=== PATIENT | male | born 1990 | race Caucasian/White ===

== ENCOUNTER 2017-03-28 11:12 | Emergency (ER) | payer SELFPAY ==
[2017-03-28 12:02] LABS: HEMATOCRIT 47.6 % (37.9-51.0); HEMOGLOBIN 16.5 g/dL (13.5-17.0); HGB HCT DIFFERENCE 1.9; MEAN CORPUSCULAR HEMOGLOBIN 31.9 pg (27.0-33.4); MEAN CORPUSCULAR HGB CONC 34.7 g/dL (32.0-36.0); MEAN CORPUSCULAR VOLUME 92 fl (80-97); RED BLOOD COUNT 5.18 10^6/uL (4.35-5.55); RED CELL DISTRIBUTION WIDTH 13.1 % (11.5-14.0); WHITE BLOOD COUNT 22.5 10^3/uL (4.0-10.5)
[2017-03-28 12:16] LABS: ALANINE AMINOTRANSFERASE 44 U/L (21-72); ALBUMIN 4.2 g/dL (3.5-5.0); ALKALINE PHOSPHATASE 54 U/L (38-126); ANION GAP 11 (5-19); ASPARTATE AMINO TRANSFERASE 35 U/L (17-59); BILIRUBIN,DIRECT 0.3 mg/dL (0.0-0.4); BILIRUBIN,TOTAL 1.1 mg/dL (0.2-1.3); BLOOD UREA NITROGEN 15 mg/dL (7-20); CALCIUM 9.6 mg/dL (8.4-10.2); CARBON DIOXIDE 30 mmol/L (22-30); CHLORIDE 101 mmol/L (98-107); CREATININE RESULT 1.22 mg/dL (0.52-1.25); GLUCOSE 79 mg/dL (75-110); POTASSIUM 4.1 mmol/L (3.6-5.0); SODIUM 142.3 mmol/L (137-145); TOTAL PROTEIN 6.4 g/dL (6.3-8.2)
[2017-03-28 12:17] LABS: ALCOHOL < 10 mg/dL (NONE DETECTED)
--- NOTE | 2017-03-28 12:41 | ER Document Report ---
ED General - General Chief Complaint: Suicidal Ideation Stated Complaint: SUICIDAL IDEATIONS Time Seen by Provider: 03/28/17 11:36 TRAVEL OUTSIDE OF THE [place] IN LAST 30 DAYS: No - HPI Patient complains to provider of: suicidal ideation overdose Notes: Patient coming in for overdose of medication. Patient took approximate 5 flexors and states 40 triple see tablets at 2:00 night prior to arrival in the attempt to kill himself. Patient states history of suicide and suicide attempts in the past. Patient denies any PTSD bipolar does state he has a history of depression. Patient states he is provider is located at [facility] and is not on any medications at this time. Patient denies smoking states he was drinking last night denies any other illicit drugs suffer marijuana. Patient denies any change in social or vomiting factors that made him overdose last night states "I was just trying to kill myself". - Related Data Allergies/Adverse Reactions: No Known Allergies Allergy (Verified 11/02/16 07:52) Past Medical History - Social History Smoking Status: Current Every Day Smoker Chew tobacco use (# tins/day): No Frequency of alcohol use: Heavy Drug Abuse: Prescription drugs Family History: Reviewed & Not Pertinent Psychiatric Medical History: Reports: Hx Depression - Immunizations Hx Diphtheria, Pertussis, Tetanus Vaccination: Yes Review of Systems - Review of Systems Constitutional: No symptoms reported EENT: No symptoms reported Cardiovascular: No symptoms reported Respiratory: No symptoms reported Gastrointestinal: No symptoms reported Genitourinary: No symptoms reported Male Genitourinary: No symptoms reported Musculoskeletal: No symptoms reported Skin: No symptoms reported Hematologic/Lymphatic: No symptoms reported Neurological/Psychological: Suicidal ideation -: Yes All other systems reviewed and negative Physical Exam - Vital signs Vitals: Temp Pulse Resp BP Pulse Ox 98.9 F 92 20 143/92 H 99 03/28/17 11:20 03/28/17 11:20 03/28/17 11:20 03/28/17 11:20 03/28/17 11:20 Interpretation: Normal - General General appearance: Appears well, Alert - HEENT Head: Normocephalic, Atraumatic Eyes: Normal Pupils: PERRL - Respiratory Respiratory status: No respiratory distress Chest status: Nontender Breath sounds: Normal Chest palpation: Normal - Cardiovascular Rhythm: Regular Heart sounds: Normal auscultation Murmur: No - Abdominal Inspection: Normal Distension: No distension Bowel sounds: Normal Tenderness: Nontender Organomegaly: No organomegaly - Back Back: Normal, Nontender - Extremities General upper extremity: Normal inspection, Nontender, Normal color, Normal ROM , Normal temperature General lower extremity: Normal inspection, Nontender, Normal color, Normal ROM , Normal temperature, Normal weight bearing. No: Rahat's sign - Neurological Neuro grossly intact: Yes Cognition: Normal Orientation: AAOx4 [place] Coma Scale Eye Opening: Spontaneous [place] Coma Scale Verbal: Oriented [place] Coma Scale Motor: Obeys Commands John Coma Scale Total: 15 Speech: Normal Motor strength normal: LUE, RUE, LLE, RLE Sensory: Normal - Psychological Associated symptoms: Flat affect - Skin Skin Temperature: Warm Skin Moisture: Dry Skin Color: Normal Course - Re-evaluation Re-evalutation: 03/28/17 12:20 Patient will be medically cleared for mental health evaluation. At this point patient physical examination is otherwise normal. 03/28/17 18:34 03/28/17 18:34 Leukocytosis nondescriptive no signs of infection recommend monitoring patient becomes febrile repeat laboratory studies. Patient otherwise clear for psychiatric evaluation. - Vital Signs Vital signs: Temp Pulse Resp BP Pulse Ox 98.8 F 92 18 143/92 H 97 03/28/17 11:36 03/28/17 11:36 03/28/17 11:36 03/28/17 11:36 03/28/17 11:36 - Laboratory Result Diagrams: 03/28/17 11:45 03/28/17 11:45 Laboratory results interpreted by me: 03/28/17 03/28/17 03/28/17 11:45 11:45 13:50 WBC 22.5 H Plt Count 147 L Seg Neuts % (Manual) 84 H Band Neutrophils % 1 L Lymphocytes % (Manual) 6 L Abs Neuts (Manual) 19.1 H Urine Protein 30 H Urine Ketones TRACE H Salicylates < 1.0 L Acetaminophen < 10 L Critical Care Note - Critical Care Note Total time excluding time spent on procedures (mins): 35 Comments: Multiple evaluations for possible overdose. Discharge - Discharge Clinical Impression: Drug overdose, intentional Qualifiers: Encounter type: initial encounter Qualified Code(s): T50.902A - Poisoning by unspecified drugs, medicaments and biological substances, intentional self-harm , initial encounter Suicidal behavior Qualifiers: Attempted self-injury: without attempted self-injury Qualified Code(s): R46.89 - Other symptoms and signs involving appearance and behavior
[2017-03-28 13:06] LABS: BAND NEUTROPHILS % (MANUAL) 1 % (3-5); BASOPHILS % (MANUAL) 1 % (0-2); EOSINOPHILS % (MANUAL) 0 % (0-6); LYMPHOCYTES % (MANUAL) 6 % (13-45); RBC MORPHOLOGY COMMENT NORMO-CYTIC/CHROMIC; TOTAL CELLS COUNTED 100
[2017-03-28 14:11] LABS: APPEARANCE,URINE CLEAR; BILIRUBIN,URINE NEGATIVE (NEGATIVE); GLUCOSE, URINE NEGATIVE (NEGATIVE); KETONES,URINE TRACE mg/dL (NEGATIVE); LEUKOCYTE ESTERASE,URINE NEGATIVE (NEGATIVE); NITRITE,URINE NEGATIVE (NEGATIVE); PROTEIN,URINE 30 mg/dL (NEGATIVE); URINE SPECIFIC GRAVITY 1.005; UROBILINOGEN,URINE NEGATIVE mg/dL (<2.0)
[2017-03-28 14:26] LABS: URINE BARBITURATES SCREEN NEGATIVE; URINE METHADONE SCREEN NEGATIVE; URINE OPIATES LOW NEGATIVE; URINE PHENCYCLIDINE SCREEN UNCONFIRMED POSITIVE
--- NOTE | 2017-03-28 15:22 | PSYCHOLOGICAL NOTE ---
Psych Note - Psych Note Psych Note: Patient is a 26 year old male who presented this morning via EMS to 2 intentional overdose of triple C's and Effexor. Patient states he ingested the pills last night. He states since he was seen here last year he's continued to struggle with depression and hopelessness. He states nothing specific happened , but yesterday went into the [place] for the night had a couple of beers, brought a knife (but lost it) and the pills. He states he slowly ingested the pills over the course of the night. Patient reports when he woke up this morning he walked back to his home and his sister encountered him. Patient's sister called EMS for medical evaluation due to concerns over the pills ingested. Patient states since the past year he has continued to live with his mother and is working at [employer]. Patient states he goes to our [facility] for medication management and is prescribed Effexor and also engages in group therapy sessions. Patient states nothing has been helpful and he no longer sees a reason to continue to try. Patient acknowledges that he smokes marijuana and drinks alcohol at least every other day. He reports, as he did last year, that this helps him calm down and sleep. Patient denies any other substances currently, but reports significant history of all drugs to include heroin, etc. Patient is alert and oriented. Mood is depressed with flat affect. Patient endorses suicidal ideations, intent, plan, and means. Patient denies homicidal ideations. Patient endorses a/VH; delusions not noted. Thought processes were organized but guarded. Conversational speech was low for prosody. Intellectual abilities were estimated within the low average range. Attention and focus were fair. Insight, judgment, impulse control were poor. Unspecified bipolar and related disorder, per history Unspecified cannabis use disorder, per history Polysubstance abuse, per history Patient is recommended for IVC and to seek 24 hour inpatient psychiatric treatment. Patient wants to . Patient reprots he is hopeless about his future , and feels he has no future. Patient has attempted suicide in the past. Patient also has SA. I consulted with Dr. shaw in regards to the care and management of this patient ED MD is in agreement with disposition and recommendations.
--- NOTE | 2017-03-28 17:01 | EKG REPORT ---
SEVERITY:- ABNORMAL ECG - SINUS RHYTHM PROBABLE LEFT VENTRICULAR HYPERTROPHY ST ELEV, PROBABLE NORMAL EARLY REPOL PATTERN : Confirmed by: Roger Hurtado 28-Mar-2017 17:00:58
[2017-03-29 13:24] VITALS: BP 131/81
--- NOTE | 2017-03-29 13:53 | PSYCHOLOGICAL NOTE ---
Psych Note - Psych Note Psych Note: Patient is a 26 year old male who presented this morning via EMS secondary to intentional overdose of triple C's and Effexor. Patient states he ingested the pills last night. He states since he was seen here last year he's continued to struggle with depression and hopelessness. He states nothing specific happened , but yesterday went [place] the [place] for the night had a couple of beers, brought a knife (but lost it) and the pills. He states he slowly ingested the pills over the course of the night. Patient reports when he woke up this morning he walked back to his home and his sister encountered him. Patient's sister called EMS for medical evaluation due to concerns over the pills ingested. Patient states since the past year he has continued to live with his mother and is working at [employer]. Patient states he goes to [facility] for medication management and is prescribed Effexor and also engages in group therapy sessions. Clinician conducted check in with patient Patient disclosed he has been dealing with suicidal ideation for years. He states that recently has gotten worse. Patient states that yesterday was bad however feels that it has Dialpak a little bit today. Patient disclosed that he is started Effexor approximately 2-3 months ago. He hasn't outpatient provided through [facility] for his depression his last appointment was 2 weeks ago with increased his Effexor. Patient admits to substance abuse stating that he smokes marijuana every other day. Patient is unable to identify what triggered his increase in suicidal ideation. Patient is alert and orientated to person, place, time and circumstance. Mood is euthymic with congruent affect. Patient denies suicidal and homicidal ideation. Patient denies auditory and visual hallucinations; patient is not demonstrating behaviour what would be congruent to responding to internal stimuli. No delusions are noted. Thought process is organized and linear. Eye contact was well maintained. Intellectual abilities appear to be within average range. Attention and concentration is good. Insight, judgment, and impulse control is good. 311 (F32.9) unspecified depressive disorder per history provided by patient 304.30 (F12.20) cannabis use disorder; moderate Impression\\plan: Patient is recommended for rescind of IVC is considered psychiatrically cleared for discharge. Patient does not meet IVC criteria per [place] GS 122C. Patient disclosed starting medication for depression which correlates his increase in suicidal ideation. Patient has been suffering from suicidal ideation for "years." Patient is recommended to receive substance abuse assessment and treatment. Patient is recommended to follow-up with [facility], his mental health provider, upon discharge. Dr. Hart was consulted to care and management of this patient; attending physician is in agreement with recommendations and disposition.
== END 2017-03-29 14:05 | disposition home or self-care (01) ==
LOC: ER 11:12
DX: T43.212A Poisoning by selective serotonin and norepinephrine reuptake inhibitors, intentional self-harm, initial encounter (principal); T50.902A Poisoning by unspecified drugs, medicaments and biological substances, intentional self-harm, initial encounter; R46.89 Other symptoms and signs involving appearance and behavior; F12.20 Cannabis dependence, uncomplicated; F32.9 Major depressive disorder, single episode, unspecified; F17.200 Nicotine dependence, unspecified, uncomplicated
CPT/HCPCS: 36415; 80053; 80307; 81001; 85025; 93005; 93010; 99291

== ENCOUNTER 2017-04-04 21:11 | Emergency (ER) | payer SELFPAY ==
[2017-04-04] MEDS ORDERED: NORMAL SALINE 1000 ML 1,000 ML IV PRN (22:52)
[2017-04-04 23:24] LABS: ABSOLUTE BASOPHILS # (AUTO) 0.1 10^3/uL (0.0-0.2); ABSOLUTE LYMPHOCYTES (AUTO) 4.1 10^3/uL (0.5-4.7); ABSOLUTE MONOCYTES (AUTO) 1.9 10^3/uL (0.1-1.4); ABSOLUTE NEUT (AUTO) 11.3 10^3/uL (1.7-8.2); BASOPHILS % (AUTO) 0.5 % (0-2); EOSINOPHILS % (AUTO) 0.2 % (0-6); HEMOGLOBIN 15.9 g/dL (13.5-17.0); HGB HCT DIFFERENCE 1.7; LYMPHOCYTES % (AUTO) 23.7 % (13-45); MEAN CORPUSCULAR HEMOGLOBIN 32.2 pg (27.0-33.4); MEAN CORPUSCULAR HGB CONC 34.6 g/dL (32.0-36.0); MEAN CORPUSCULAR VOLUME 93 fl (80-97); MONOCYTES % (AUTO) 10.8 % (3-13); RED BLOOD COUNT 4.95 10^6/uL (4.35-5.55); RED CELL DISTRIBUTION WIDTH 13.2 % (11.5-14.0); SEGMENTED NEUTROPHILS % (AUTO) 64.8 % (42-78); WHITE BLOOD COUNT 17.5 10^3/uL (4.0-10.5)
[2017-04-04 23:31] LABS: APPEARANCE,URINE CLEAR; BILIRUBIN,URINE NEGATIVE (NEGATIVE); GLUCOSE, URINE NEGATIVE (NEGATIVE); KETONES,URINE NEGATIVE (NEGATIVE); LEUKOCYTE ESTERASE,URINE NEGATIVE (NEGATIVE); NITRITE,URINE NEGATIVE (NEGATIVE); PROTEIN,URINE NEGATIVE (NEGATIVE); URINE SPECIFIC GRAVITY 1.003; UROBILINOGEN,URINE NEGATIVE mg/dL (<2.0)
[2017-04-04 23:40] LABS: ALANINE AMINOTRANSFERASE 38 U/L (21-72); ALKALINE PHOSPHATASE 67 U/L (38-126); ANION GAP 12 (5-19); ASPARTATE AMINO TRANSFERASE 23 U/L (17-59); BILIRUBIN,DIRECT 0.5 mg/dL (0.0-0.4); BILIRUBIN,TOTAL 1.4 mg/dL (0.2-1.3); BLOOD UREA NITROGEN 11 mg/dL (7-20); CALCIUM 9.7 mg/dL (8.4-10.2); CARBON DIOXIDE 25 mmol/L (22-30); CHLORIDE 105 mmol/L (98-107); CREATININE RESULT 1.41 mg/dL (0.52-1.25); GLUCOSE 113 mg/dL (75-110); POTASSIUM 4.4 mmol/L (3.6-5.0); SODIUM 142.4 mmol/L (137-145); TOTAL PROTEIN 6.6 g/dL (6.3-8.2)
--- NOTE | 2017-04-04 23:40 | ER Document Report ---
ED Psych Disorder / Suicide - General Chief Complaint: Psych Problem Stated Complaint: IVC WITH PAPERS Time Seen by Provider: 04/04/17 22:42 Mode of Arrival: Ambulatory Information source: Patient, Outside Facility Records TRAVEL OUTSIDE OF THE [place] IN LAST 30 DAYS: No - HPI Patient complains to provider of: Overdose, Suicidal ideation, Suicidal plan Suicide Risk Factors: Depressed, Frightened friends/family, Male, Prior suicide attempt Suicide Attempt Method: Overdose Injury to: Head Normal mood: No Associated symptoms: Depressed, Flat affect Similar symptoms previously: Yes Recently seen / treated by doctor: Yes Notes: Patient is a 26-year-old male who was brought to the emergency room by vault worker on IVC paper work for suicidal ideation with plan to overdose, he was recently seen in this emergency room for similar concerns, has followed up at [facility] but is noncompliant with his medications and treatment, patient admits to being suicidal on a daily basis, he is taking prescription medications that don' t belong to him, drinking alcohol and smoking weed, he states if the Effexor that is prescribed him doesn't work so he stopped taking it, patient also recently was smashing his head on the pavement, causing an abrasion over his right maxilla, states he was doing this in an effort to harm himself as well denies any headache, no loss of consciousness, no headache, no nausea or vomiting - Related Data Allergies/Adverse Reactions: No Known Allergies Allergy (Verified 11/02/16 07:52) Past Medical History - General Information source: Patient - Social History Smoking Status: Current Every Day Smoker Frequency of alcohol use: Heavy Drug Abuse: Marijuana, Prescription drugs Family History: Reviewed & Not Pertinent Psychiatric Medical History: Reports: Hx Depression - Immunizations Hx Diphtheria, Pertussis, Tetanus Vaccination: Yes Review of Systems - Review of Systems Constitutional: No symptoms reported EENT: No symptoms reported Cardiovascular: No symptoms reported Respiratory: No symptoms reported Gastrointestinal: No symptoms reported Genitourinary: No symptoms reported Male Genitourinary: No symptoms reported Musculoskeletal: No symptoms reported Skin: No symptoms reported Hematologic/Lymphatic: No symptoms reported Neurological/Psychological: See HPI -: Yes All other systems reviewed and negative Physical Exam - Vital signs Vitals: Temp Pulse Resp BP Pulse Ox 98.8 F 122 H 18 137/82 H 97 04/04/17 21:23 04/04/17 21:23 04/04/17 21:23 04/04/17 21:23 04/04/17 21:23 Interpretation: Tachycardic - General General appearance: Appears well, Alert - HEENT Head: Normocephalic, Atraumatic, Abrasions - Abrasions over right maxilla Eyes: Normal Conjunctiva: Normal Extraocular movements intact: Yes Eyelashes: Normal Pupils: PERRL - Respiratory Respiratory status: No respiratory distress Chest status: Nontender Breath sounds: Normal Chest palpation: Normal - Cardiovascular Rhythm: Regular Heart sounds: Normal auscultation Murmur: No - Abdominal Inspection: Normal Distension: No distension Bowel sounds: Normal Tenderness: Nontender Organomegaly: No organomegaly - Back Back: Normal, Nontender - Extremities General upper extremity: Normal inspection, Nontender, Normal color, Normal ROM , Normal temperature General lower extremity: Normal inspection, Nontender, Normal color, Normal ROM , Normal temperature, Normal weight bearing. No: Rahat's sign - Neurological Neuro grossly intact: Yes Cognition: Normal Orientation: AAOx4 [place] Coma Scale Eye Opening: Spontaneous John Coma Scale Verbal: Oriented John Coma Scale Motor: Obeys Commands John Coma Scale Total: 15 Speech: Normal Motor strength normal: LUE, RUE, LLE, RLE Sensory: Normal - Psychological Associated symptoms: Depressed, Flat affect - Skin Skin Temperature: Warm Skin Moisture: Dry Skin Color: Normal Course - Re-evaluation Re-evalutation: 04/04/17 23:39 Patient brought to the emergency room on IVC paper work was completed by A vault worker, he admits to being suicidal and taking multiple medications on a daily basis in an effort to harm himself or in fact kill himself, is also caused injury to his right face from smashing his head on pavement, therefore IVC paper work will be upheld, patient will be held in the emergency room until he can be evaluated by mental health team in the morning and further treatment recommendations can be made - Vital Signs Vital signs: Temp Pulse Resp BP Pulse Ox 98.8 F 122 H 18 137/82 H 97 04/04/17 21:23 04/04/17 21:23 04/04/17 21:23 04/04/17 21:23 04/04/17 21:23 - Laboratory Result Diagrams: 04/04/17 21:43 04/04/17 21:43 - EKG Interpretation by In EKG shows normal: Sinus rhythm Rate: Tachycardia Discharge - Discharge Clinical Impression: Substance abuse Depression Qualifiers: Depression Type: unspecified Qualified Code(s): F32.9 - Major depressive disorder, single episode, unspecified Drug overdose, intentional Qualifiers: Encounter type: initial encounter Qualified Code(s): T50.902A - Poisoning by unspecified drugs, medicaments and biological substances, intentional self-harm , initial encounter Suicidal behavior Qualifiers: Attempted self-injury: without attempted self-injury Qualified Code(s): R46.89 - Other symptoms and signs involving appearance and behavior Condition: Stable Disposition: PSYCH HOSP/UNIT
[2017-04-04 23:41] LABS: ALCOHOL < 10 mg/dL (NONE DETECTED)
[2017-04-04 23:48] LABS: URINE BARBITURATES SCREEN NEGATIVE; URINE METHADONE SCREEN NEGATIVE; URINE OPIATES LOW NEGATIVE; URINE PHENCYCLIDINE SCREEN NEGATIVE
[2017-04-05] MEDS ORDERED: METOCLOPRAMIDE HCL ORAL SOLN 10 MG/10 ML UDCUP PO ONE (00:40)
[2017-04-05] MEDS ORDERED: LIDOCAINE 2% VISCOUS SOLN 20 ML UDCUP PO ONE (00:40)
[2017-04-05] MEDS ORDERED: MAG HYDROX/AL HYDROX/SIMETH SUSP 30 ML UDCUP PO ONE (00:40)
[2017-04-05 03:12] VITALS: BP 125/83
[2017-04-05] MEDS ORDERED: OLANZAPINE 5 MG TABLET ONE (13:26)
--- NOTE | 2017-04-05 17:18 | EKG REPORT ---
SEVERITY:- ABNORMAL ECG - SINUS TACHYCARDIA PROBABLE LEFT ATRIAL ABNORMALITY BORDERLINE Q WAVE IN ANTEROLATERAL LEADS INFERIOR Q WAVES, PROBABLY NORMAL VARIATION : Confirmed by: Danii Del Rosario MD 05-Apr-2017 09:10:03
== END 2017-04-05 16:40 ==
LOC: ER 21:11
DX: F32.9 Major depressive disorder, single episode, unspecified (principal); T50.902A Poisoning by unspecified drugs, medicaments and biological substances, intentional self-harm, initial encounter; R46.89 Other symptoms and signs involving appearance and behavior; F12.90 Cannabis use, unspecified, uncomplicated; F10.10 Alcohol abuse, uncomplicated; F17.200 Nicotine dependence, unspecified, uncomplicated
CPT/HCPCS: 93005; 99285; 36415; 80307 ×4; 85025; 80053; 81001; 93010; J7030; J3490

== ENCOUNTER 2017-04-18 03:10 | Emergency (ER) | payer SELFPAY ==
[2017-04-18] MEDS ORDERED: LIDOCAINE 1% INJ-PF (10 MG/ML) 30 ML SDV INJ ONE (04:00)
--- NOTE | 2017-04-18 04:03 | ER Document Report ---
ED Psych Disorder / Suicide - General Mode of Arrival: Ambulatory Information source: Patient TRAVEL OUTSIDE OF THE [place] IN LAST 30 DAYS: No - HPI Patient complains to provider of: Self injury Onset: Just prior to arrival Onset was: Sudden Suicide Risk Factors: Depressed, Male Injury to: Upper extremity - Left forearm Associated symptoms: Depressed <LENORA CUTLER - Last Filed: 04/18/17 05:14> <KEO SOLOMON - Last Filed: 04/18/17 05:14> <SONIYA FOSTER - Last Filed: 04/18/17 14:11> - General Chief Complaint: Psych Problem Stated Complaint: PSYCH EVAL/ARM LACERATION Time Seen by Provider: 04/18/17 04:00 Notes: Patient is a 26-year-old male, with history of prior self-harm, presenting to the emergency department after cutting left forearm with a hunting knife. Patient admits to suicidal ideation, but denies any homicidal ideation. When asked why he keeps doing this he just shrugs. (LENORA CUTLER) - Related Data Allergies/Adverse Reactions: No Known Allergies Allergy (Verified 04/18/17 05:21) Past Medical History - General Information source: Patient, [facility] Records - Social History Smoking Status: Unknown if Ever Smoked Cigarette use (# per day): Yes Frequency of alcohol use: Heavy Drug Abuse: Marijuana, Prescription drugs Family History: Reviewed & Not Pertinent Patient has suicidal ideation: Yes Patient has homicidal ideation: No Psychiatric Medical History: Reports: Hx Depression - Immunizations Hx Diphtheria, Pertussis, Tetanus Vaccination: Yes <LENORA CUTLER - Last Filed: 04/18/17 05:14> Review of Systems - Review of Systems Constitutional: No symptoms reported EENT: No symptoms reported Cardiovascular: No symptoms reported Respiratory: No symptoms reported Gastrointestinal: No symptoms reported Genitourinary: No symptoms reported Male Genitourinary: No symptoms reported Musculoskeletal: No symptoms reported Skin: See HPI, Other - self-induced laceration to left forearm Hematologic/Lymphatic: No symptoms reported Neurological/Psychological: See HPI, Depression, Suicidal ideation -: Yes All other systems reviewed and negative <LENORA CUTLER - Last Filed: 04/18/17 05:14> Physical Exam - General General appearance: Alert - HEENT Head: Normocephalic, Atraumatic Eyes: Normal Pupils: PERRL - Respiratory Respiratory status: No respiratory distress Breath sounds: Normal - Cardiovascular Rhythm: Regular - Abdominal Inspection: Normal Tenderness: Nontender - Back Back: Normal, Nontender - Extremities General lower extremity: Normal inspection, Nontender Forearm: Laceration - 5 cm linear laceration to volar aspect of left forearm, into muscle tissue - Neurological Neuro grossly intact: Yes Cognition: Normal Orientation: AAOx4 [place] Coma Scale Eye Opening: Spontaneous [place] Coma Scale Verbal: Oriented John Coma Scale Motor: Obeys Commands John Coma Scale Total: 15 Speech: Normal - Psychological Associated symptoms: Depressed - Skin Skin Temperature: Warm Skin Moisture: Dry Skin Color: Other - See extremity exam <LENORA CUTLER - Last Filed: 04/18/17 05:14> Course - Laboratory Result Diagrams: 04/18/17 04:55 04/18/17 04:55 <LENORA CUTLER - Last Filed: 04/18/17 05:14> - Laboratory Result Diagrams: 04/18/17 04:55 04/18/17 04:55 - EKG Interpretation by [place] EKG shows normal: Sinus rhythm, [place], Intervals, QRS Complexes. abnormal: ST-T Waves - ST depression due to early repolarization Rate: Normal - 92 Rhythm: NSR Voltage: Consistant with LVH <KEO SOLOMON - Last Filed: 04/18/17 05:14> - Laboratory Result Diagrams: 04/18/17 04:55 04/18/17 04:55 <SONIYA FOSTER - Last Filed: 04/18/17 14:11> - Re-evaluation Re-evalutation: 04/18/17 14:10 Discussed with Mental health who has cleared patient from a psychiatric standpoint. Patient is stable for discharge at this time and is denying active suicidal ideation. He will follow-up with [facility], and family is present and willing to take him there immediately upon discharge. (SONIYA FOSTER) - Vital Signs Vital signs: Temp Pulse Resp BP Pulse Ox 98.2 F 73 18 134/93 H 96 04/18/17 04:15 04/18/17 06:11 04/18/17 05:14 04/18/17 06:11 04/18/17 06:11 - Laboratory Laboratory results interpreted by nj: 05/30/17 05/30/17 05/30/17 04:55 04:55 09:55 WBC 14.7 H Absolute Neutrophils 11.4 H Creatinine 1.55 H Est GFR (Non-Af Amer) 54 L Urine Protein 30 H Salicylates < 1.0 L Acetaminophen < 10 L Procedures - Laceration/Wound Repair Left Volar Arm Time completed: 05:10 Wound length (cm): 5 Wound's Depth, Shape: Into muscle, Linear Laceration pre-procedure: Sterile drapes applied, Other Anesthetic type: 1% Lidocaine Volume Anesthetic (mLs): 4 Wound explored: Clean, No foreign body removed Irrigated w/ Saline (mLs): 30 Wound Debrided: Minimal Wound Repaired With: Umer - 9 umer Post-procedure wound care: Sterile dressing applied Post-procedure NV exam normal: Yes Complications: No <KEO SOLOMON - Last Filed: 04/18/17 05:14> Discharge <LENORA CUTLER - Last Filed: 04/18/17 05:14> <KEO SOLOMON - Last Filed: 04/18/17 05:14> <SONIYA FOSTER - Last Filed: 04/18/17 14:11> - Discharge Clinical Impression: Laceration, Suicidal ideation, Substance abuse Depression Qualifiers: Depression Type: unspecified Qualified Code(s): F32.9 - Major depressive disorder, single episode, unspecified Condition: Stable Disposition: PSYCH HOSP/UNIT Additional Instructions: Depression Your evaluation reveals that you have mental depression. While symptoms may be vague, they often include disturbance of sleep, fatigue, loss of appetite , and general loss of interest in life. While depression may be a side effect of drugs, or a reaction to a major change in your life, many cases have no known cause. If depression is acute, and related to a major loss in your life, you can expect it to clear completely with time. If you have been depressed a long time , are prone to repeated bouts of depression or low mood, or have been thinking of suicide, get help. Depression can be treated with anti-depressant medication and counselling. Long-term depression will often take a few weeks to clear, even with appropriate medication. Follow-up care is important. Contact your physician, the hospital emergency center, crisis line, or your counsellor if you are losing control or having self-destructive thoughts. Please stop abusing drugs and seek substance abuse assessment and treatment. At this time, there are no available beds at [facility] in [place]. [facility] is a local provider, with multiple detox facilities. Please walk in there as a new patient and request assistance. Referrals: [facility] [Provider Group] - 04/18/17 Scribe Attestation: 04/18/17 05:18 I personally performed the services described in the documentation, reviewed and edited the documentation which was dictated to the scribe in my presence, and it accurately records my words and actions. (KEO SOLOMON) Scribe Documentation - Scribe Written by Guilherme:: Guilherme Walls, 04/18/2017 0400 acting as scribe for :: Ben <LENORA CUTLER - Last Filed: 04/18/17 05:14>
[2017-04-18 05:31] LABS: ABSOLUTE BASOPHILS # (AUTO) 0.1 10^3/uL (0.0-0.2); ABSOLUTE MONOCYTES (AUTO) 1.2 10^3/uL (0.1-1.4); ABSOLUTE NEUT (AUTO) 11.4 10^3/uL (1.7-8.2); BASOPHILS % (AUTO) 0.4 % (0-2); EOSINOPHILS % (AUTO) 0.1 % (0-6); HEMATOCRIT 46.3 % (37.9-51.0); HEMOGLOBIN 15.8 g/dL (13.5-17.0); HGB HCT DIFFERENCE 1.1; LYMPHOCYTES % (AUTO) 13.7 % (13-45); MEAN CORPUSCULAR HEMOGLOBIN 31.9 pg (27.0-33.4); MEAN CORPUSCULAR HGB CONC 34.2 g/dL (32.0-36.0); MEAN CORPUSCULAR VOLUME 93 fl (80-97); MONOCYTES % (AUTO) 7.9 % (3-13); RED BLOOD COUNT 4.96 10^6/uL (4.35-5.55); RED CELL DISTRIBUTION WIDTH 13.5 % (11.5-14.0); SEGMENTED NEUTROPHILS % (AUTO) 77.9 % (42-78); WHITE BLOOD COUNT 14.7 10^3/uL (4.0-10.5)
[2017-04-18 05:34] LABS: ALANINE AMINOTRANSFERASE 32 U/L (21-72); ALBUMIN 4.1 g/dL (3.5-5.0); ALKALINE PHOSPHATASE 58 U/L (38-126); ANION GAP 10 (5-19); ASPARTATE AMINO TRANSFERASE 21 U/L (17-59); BILIRUBIN,DIRECT 0.2 mg/dL (0.0-0.4); BILIRUBIN,TOTAL 0.7 mg/dL (0.2-1.3); BLOOD UREA NITROGEN 15 mg/dL (7-20); CALCIUM 10.2 mg/dL (8.4-10.2); CARBON DIOXIDE 28 mmol/L (22-30); CHLORIDE 107 mmol/L (98-107); CREATININE RESULT 1.55 mg/dL (0.52-1.25); GLUCOSE 98 mg/dL (75-110); POTASSIUM 4.2 mmol/L (3.6-5.0); SODIUM 144.6 mmol/L (137-145); TOTAL PROTEIN 6.6 g/dL (6.3-8.2)
[2017-04-18 05:42] LABS: ALCOHOL < 10 mg/dL (NONE DETECTED)
--- NOTE | 2017-04-18 10:02 | EKG REPORT ---
SEVERITY:- ABNORMAL ECG - SINUS RHYTHM PROBABLE LEFT VENTRICULAR HYPERTROPHY ST ELEV, PROBABLE NORMAL EARLY REPOL PATTERN : Confirmed by: Roger Hurtado 18-Apr-2017 10:02:16
[2017-04-18 10:20] LABS: APPEARANCE,URINE CLEAR; BILIRUBIN,URINE NEGATIVE (NEGATIVE); GLUCOSE, URINE NEGATIVE (NEGATIVE); KETONES,URINE NEGATIVE (NEGATIVE); LEUKOCYTE ESTERASE,URINE NEGATIVE (NEGATIVE); NITRITE,URINE NEGATIVE (NEGATIVE); PROTEIN,URINE 30 mg/dL (NEGATIVE); URINE SPECIFIC GRAVITY 1.005; UROBILINOGEN,URINE NEGATIVE mg/dL (<2.0)
[2017-04-18 10:36] LABS: URINE BARBITURATES SCREEN NEGATIVE; URINE METHADONE SCREEN NEGATIVE; URINE OPIATES LOW NEGATIVE; URINE PHENCYCLIDINE SCREEN UNCONFIRMED POSITIVE
--- NOTE | 2017-04-18 13:53 | ER Document Report ---
ED Psych Disorder / Suicide - General Mode of Arrival: Ambulatory Information source: Patient, Relative - sister, [facility] Records TRAVEL OUTSIDE OF THE U.S. IN LAST 30 DAYS: No - HPI Patient complains to provider of: Suicidal ideation, Self injury - self inflicted cuts on arm Onset: Other - the thoughts of self harm etc are chronic and coincide with his SA. Onset was: Cannot confirm Suicide Risk Factors: Depressed, Frightened friends/family, Male, Substance abuse Normal mood: Yes Associated symptoms: Normal affect - smiling, Normal mood, Depressed Similar symptoms previously: Yes - chronic x2 or so years Recently seen / treated by doctor: Yes - recently treated here in the ED <STANLEY KAISER - Last Filed: 04/18/17 13:43> <SONIYA FOSTER - Last Filed: 04/18/17 14:24> - General Chief Complaint: Psych Problem Stated Complaint: PSYCH EVAL/ARM LACERATION Time Seen by Provider: 04/18/17 04:00 - HPI Notes: Patient is a 26-year-old male who presented overnight under the influence of marijuana, and michael dust with a self-inflicted arm lac. Patient is additionally struggling with urinary retention, a common side effect resulting from his chronic drug abuse. Patient today states nothing is new since his last presentation here in the department. Patient does state he is willing to engage in drug and alcohol treatment. Patient is agreeable to go to a detox and /or outpatient provider. Patient continues to endorse suicidal ideations, which should be noted are chronic and well documented throughout patient's EMR. Patient is alert and oriented 4. Mood is euthymic with normal and smiling affect. Patient endorses suicidal ideations. Patient denies homicidal ideations, intent, plan, means. Patient denies A/VH; delusions not noted. Thought processes were organized. Conversational speech was WNL for this patient. Intellectual abilities were estimated within average range. Attention and focus are fair. Insight, judgment, impulse control are poor. 311 (F32.9) unspecified depressive disorder per history provided by patient 304.30 (F12.20) cannabis use disorder; moderate Polysubstance Use Disorder (STANLEY KAISER) - Related Data Allergies/Adverse Reactions: No Known Allergies Allergy (Verified 04/18/17 05:21) Past Medical History - General Information source: Patient, [facility] Records - Social History Smoking Status: Current Every Day Smoker Cigarette use (# per day): Yes Frequency of alcohol use: Heavy Drug Abuse: Marijuana, Prescription drugs Family History: Reviewed & Not Pertinent Patient has suicidal ideation: Yes Patient has homicidal ideation: No Renal/ Medical History: Denies: Hx Peritoneal Dialysis Psychiatric Medical History: Reports: Hx Depression Surgical Hx: Negative - Immunizations Hx Diphtheria, Pertussis, Tetanus Vaccination: Yes <STANLEY KAISER - Last Filed: 04/18/17 13:43> Course - Laboratory Result Diagrams: 04/18/17 04:55 04/18/17 04:55 <STANLEY KAISER - Last Filed: 04/18/17 13:43> - Laboratory Result Diagrams: 04/18/17 04:55 04/18/17 04:55 <SONIYA FOSTER - Last Filed: 04/18/17 14:24> - Vital Signs Vital signs: Temp Pulse Resp BP Pulse Ox 98.2 F 73 18 134/93 H 96 04/18/17 04:15 04/18/17 06:11 04/18/17 05:14 04/18/17 06:11 04/18/17 06:11 - Laboratory Laboratory results interpreted by me: 04/18/17 04/18/17 04/18/17 04:55 04:55 09:55 WBC 14.7 H Absolute Neutrophils 11.4 H Creatinine 1.55 H Est GFR (Non-Af Amer) 54 L Urine Protein 30 H Salicylates < 1.0 L Acetaminophen < 10 L Discharge <STANLEY KAISER - Last Filed: 04/18/17 13:43> <SONIYA FOSTER - Last Filed: 04/18/17 14:24> - Discharge Clinical Impression: Laceration, Suicidal ideation, Substance abuse, Urinary retention Depression Qualifiers: Depression Type: unspecified Qualified Code(s): F32.9 - Major depressive disorder, single episode, unspecified Condition: Stable Disposition: HOME, SELF-CARE Additional Instructions: Depression Your evaluation reveals that you have mental depression. While symptoms may be vague, they often include disturbance of sleep, fatigue, loss of appetite , and general loss of interest in life. While depression may be a side effect of drugs, or a reaction to a major change in your life, many cases have no known cause. If depression is acute, and related to a major loss in your life, you can expect it to clear completely with time. If you have been depressed a long time , are prone to repeated bouts of depression or low mood, or have been thinking of suicide, get help. Depression can be treated with anti-depressant medication and counselling. Long-term depression will often take a few weeks to clear, even with appropriate medication. Follow-up care is important. Contact your physician, the hospital emergency center, crisis line, or your counsellor if you are losing control or having self-destructive thoughts. Please stop abusing drugs and seek substance abuse assessment and treatment. At this time, there are no available beds at [facility] in [place]. [facility] is a local provider, with multiple detox facilities. Please walk in there as a new patient and request assistance. Urinary Retention Urinary retention is inability to empty the bladder. It can result from a urine infection, or from mechanical problems such as an enlarged prostate gland or swelling of the urethra. Drugs or alcohol can also lead to urine retention. The condition is usually treated by passage of a catheter. If the physician thinks the problem will continue, the catheter may be left in place for a few days. Sometimes drugs are used to stimulate the bladder if the physician feels that inadequate bladder contraction is the cause. If the condition leading to the retention is a chronic one, such as an enlarged prostate, you will be referred to a specialist for further care. Call the physician or return if you develop fever, flank or back pain, pain on urination, or recurrent difficulty passing the urine. Follow up with Urology in 2-3 days for catheter removal. Referrals: [facility] [Provider Group] - 04/18/17 MEHRAN MANJARREZ MD [ACTIVE STAFF] - Follow up tomorrow Scribe Attestation: 04/18/17 05:18 I personally performed the services described in the documentation, reviewed and edited the documentation which was dictated to the scribe in my presence, and it accurately records my words and actions. (STANLEY KAISER)
[2017-04-18 14:44] VITALS: BP 144/92
== END 2017-04-18 14:55 | disposition home or self-care (01) ==
LOC: ER 03:10
PROC: 0HQEXZZ Repair Left Lower Arm Skin, External Approach (ICD-10-PCS; principal; 2017-04-18)
DX: S51.812A Laceration without foreign body of left forearm, initial encounter (principal); F32.9 Major depressive disorder, single episode, unspecified; R45.851 Suicidal ideations; F12.20 Cannabis dependence, uncomplicated; X78.1XXA Intentional self-harm by knife, initial encounter
CPT/HCPCS: 93005; 99284; 36415; 80307 ×4; 85025; 80053; 81001; 93010; 12002; J3490

== ENCOUNTER 2017-04-20 11:34 | Emergency (ER) | payer SELFPAY ==
--- NOTE | 2017-04-20 12:33 | ER Document Report ---
ED GI/ - General Chief Complaint: Needs Urinary Cath Replaced Stated Complaint: NEEDS CATHETER REMOVED Time Seen by Provider: 04/20/17 12:17 Mode of Arrival: Ambulatory Information source: Patient Notes: 26-year-old male presents to ED for removal of urinary catheter. States he was in here 2 days ago and had the catheter placed for urinary retention. States he was told to follow-up with the urologist to have the catheter removed and has not followed up states he came in here to see if he can get it removed. TRAVEL OUTSIDE OF THE U.S. IN LAST 30 DAYS: No - HPI Onset: Other - 2 days ago Timing/Duration: Better Quality of pain: Other - States he has some stomach gas pains Severity at maximum: Mild Severity in ED: Mild Pain Level: 2 Location: RUQ - No pain at this time has been having it off and on Associated symptoms: Other - Marquez catheter removed Exacerbated by: Denies Relieved by: Denies Similar symptoms previously: Yes Recently seen / treated by doctor: Yes - Related Data Allergies/Adverse Reactions: No Known Allergies Allergy (Verified 04/20/17 11:38) Past Medical History - General Information source: Patient - Social History Smoking Status: Never Smoker Cigarette use (# per day): No Chew tobacco use (# tins/day): No Smoking Education Provided: No Family History: Reviewed & Not Pertinent Patient has suicidal ideation: No Patient has homicidal ideation: No - Past Medical History Cardiac Medical History: Reports: None Pulmonary Medical History: Reports: None EENT Medical History: Reports: None Neurological Medical History: Reports: None Endocrine Medical History: Reports: None Renal/ Medical History: Reports: Other - Urinary retention last visit had a catheter placed and is having it removed today Malignancy Medical History: Reports None GI Medical History: Reports: None Musculoskeltal Medical History: Reports None Skin Medical History: Reports None Psychiatric Medical History: Reports: Hx Depression, Other - Self mutilation Traumatic Medical History: Reports: None Infectious Medical History: Reports: None Surgical Hx: Negative Past Surgical History: Reports: None - Immunizations Hx Diphtheria, Pertussis, Tetanus Vaccination: Yes Review of Systems - Review of Systems Constitutional: No symptoms reported EENT: No symptoms reported Cardiovascular: No symptoms reported Respiratory: No symptoms reported Gastrointestinal: Abdominal pain - Pains come and go Genitourinary: Other - Would like Marquez removed Male Genitourinary: No symptoms reported Musculoskeletal: No symptoms reported Skin: No symptoms reported Hematologic/Lymphatic: No symptoms reported Neurological/Psychological: No symptoms reported -: Yes All other systems reviewed and negative Physical Exam - Vital signs Vitals: Temp Pulse Resp BP Pulse Ox 97.7 F 83 16 126/76 H 100 04/20/17 11:38 04/20/17 11:38 04/20/17 11:38 04/20/17 11:38 04/20/17 11:38 Interpretation: Normal - General General appearance: Appears well, Alert - HEENT Head: Normocephalic, Atraumatic Eyes: Normal Pupils: PERRL - Respiratory Respiratory status: No respiratory distress Chest status: Nontender Breath sounds: Normal Chest palpation: Normal - Cardiovascular Rhythm: Regular Heart sounds: Normal auscultation Murmur: No - Abdominal Inspection: Normal Distension: No distension Bowel sounds: Hyperactive Tenderness: Nontender Organomegaly: No organomegaly - Genitourinary Notes: Marquez in place upon arrival which was removed after getting a urine specimen. - Back Back: Normal, Nontender - Extremities General upper extremity: Normal inspection, Nontender, Normal color, Normal ROM , Normal temperature General lower extremity: Normal inspection, Nontender, Normal color, Normal ROM , Normal temperature, Normal weight bearing. No: Rahat's sign - Neurological Neuro grossly intact: Yes Cognition: Normal Orientation: AAOx4 [place] Coma Scale Eye Opening: Spontaneous John Coma Scale Verbal: Oriented [place] Coma Scale Motor: Obeys Commands John Coma Scale Total: 15 Speech: Normal Motor strength normal: LUE, RUE, LLE, RLE Sensory: Normal - Psychological Associated symptoms: Normal affect, Normal mood - Skin Skin Temperature: Warm Skin Moisture: Dry Skin Color: Normal Course - Re-evaluation Re-evalutation: 04/20/17 22:42 Removed patient was encouraged to drink fluids and was discharged after he was able to void with no difficulty. - Vital Signs Vital signs: Temp Pulse Resp BP Pulse Ox 98.1 F 58 L 18 128/71 H 98 04/20/17 14:47 04/20/17 14:47 04/20/17 14:47 04/20/17 14:47 04/20/17 14:47 - Laboratory Laboratory results interpreted by me: 04/20/17 12:36 Urine Protein 30 H Urine Urobilinogen 4.0 H Urine Ascorbic Acid 40 H Discharge - Discharge Clinical Impression: Encounter for Marquez catheter removal Condition: Stable Disposition: HOME, SELF-CARE Instructions: Family Physicians / Practices Additional Instructions: You were seen today for Marquez removal. Marquez has been removed and had urinated with no difficulty you do not have a urinary tract infection at this time. Please be sure to drink 8-10 glasses of water a day to prevent urinary retention. Please can follow-up with urologist as previously ordered. FOLLOW-UP CARE: If you have been referred to a physician for follow-up care, call the physician s office for an appointment as you were instructed or within the next two days. If you experience worsening or a significant change in your symptoms, notify the physician immediately or return to the Emergency Department at any time for re-evaluation. Forms: Elevated Blood Pressure, Return to Work
[2017-04-20 12:56] LABS: APPEARANCE,URINE CLEAR; BILIRUBIN,URINE NEGATIVE (NEGATIVE); GLUCOSE, URINE NEGATIVE (NEGATIVE); KETONES,URINE NEGATIVE (NEGATIVE); LEUKOCYTE ESTERASE,URINE NEGATIVE (NEGATIVE); NITRITE,URINE NEGATIVE (NEGATIVE); PROTEIN,URINE 30 mg/dL (NEGATIVE); URINE SPECIFIC GRAVITY 1.011
[2017-04-20 14:49] VITALS: BP 128/71
== END 2017-04-20 14:50 | disposition home or self-care (01) ==
LOC: ER 11:34
DX: Z46.6 Encounter for fitting and adjustment of urinary device (principal)
CPT/HCPCS: 81001; 99283

== ENCOUNTER 2017-05-11 15:15 | Emergency (ER) | payer SELFPAY ==
--- NOTE | 2017-05-11 16:07 | ER Document Report ---
ED Suture/Wound Recheck - General Chief Complaint: Suture Removal Stated Complaint: SUTURE REMOVAL Time Seen by Provider: 05/11/17 16:03 Notes: Patient is a 26-year-old male who presents for suture removal. Patient had ana paula placed on April 18 for a suicide attempt with a negative cuts to the left volar forearm. Patient states that forearm healed well no pain, drainage or fevers or chills. Patient following up with [facility] after discharge her previous hospital admission for suicidal ideations. Denies any suicidal or homicidal ideations today. TRAVEL OUTSIDE OF THE [place] IN LAST 30 DAYS: No - Related Data Allergies/Adverse Reactions: No Known Allergies Allergy (Verified 04/20/17 11:38) Past Medical History - Social History Smoking Status: Current Every Day Smoker Family History: Reviewed & Not Pertinent Patient has suicidal ideation: No Patient has homicidal ideation: No Renal/ Medical History: Denies: Hx Peritoneal Dialysis Psychiatric Medical History: Reports: Hx Depression - Immunizations Hx Diphtheria, Pertussis, Tetanus Vaccination: Yes Review of Systems - Review of Systems Constitutional: No symptoms reported Skin: See HPI Neurological/Psychological: See HPI Physical Exam - Vital signs Vitals: Temp Pulse Resp BP Pulse Ox 98.2 F 79 16 124/81 99 05/11/17 15:29 05/11/17 15:29 05/11/17 15:29 05/11/17 15:29 05/11/17 15:29 - General General appearance: Appears well, Alert In distress: None - Extremities General upper extremity: Normal inspection, Nontender, Normal color, Normal ROM , Normal strength, Normal temperature. No: Edema - Psychological Associated symptoms: Normal affect, Normal mood - Skin Skin Temperature: Warm Skin Moisture: Dry Skin Color: Normal Skin Turgor: Elastic Skin irregularity: other - Laceration measuring approximately 6 cm with [address] Following up at the bedside Irregularity with: negative: Swelling, Tenderness, Warmth, Induration, Inflammation, Weeping Course - Re-evaluation Re-evalutation: 05/11/17 16:05 8 ana paula removed at the bedside tolerated well. No evidence of wound dehiscence, infection. Patient stable for discharge home - Vital Signs Vital signs: Temp Pulse Resp BP Pulse Ox 98.2 F 78 18 121/75 99 05/11/17 15:29 05/11/17 16:17 05/11/17 16:17 05/11/17 16:17 05/11/17 16:17 Discharge - Discharge Clinical Impression: Removal of ana paula Condition: Good Disposition: HOME, SELF-CARE Instructions: Suture Removal [facility]errals: [facility] [Provider Group] - Follow up tomorrow
[2017-05-11 16:20] VITALS: BP 121/75
== END 2017-05-11 16:20 | disposition home or self-care (01) ==
LOC: ER 15:15
DX: S51.812D Laceration without foreign body of left forearm, subsequent encounter (principal); X78.9XXD Intentional self-harm by unspecified sharp object, subsequent encounter; F17.200 Nicotine dependence, unspecified, uncomplicated

== ENCOUNTER 2017-09-19 10:29 | Emergency (ER) | payer SELFPAY ==
[2017-09-19 10:33] VITALS: BP 119/70
[2017-09-19] MEDS ORDERED: LIDOCAINE 2% VISCOUS SOLN 20 ML UDCUP PO ONE (12:11)
[2017-09-19] MEDS ORDERED: IBUPROFEN 800 MG TABLET PO ONE (12:11)
[2017-09-19] MEDS ORDERED: PENICILLIN V POTASSIUM 500 MG TABLET PO ONE (12:11)
--- NOTE | 2017-09-19 12:17 | ER Document Report ---
ED Oral Problem - General Chief Complaint: Toothache Stated Complaint: TOOTH PAIN Time Seen by Provider: 09/19/17 11:40 Mode of Arrival: Ambulatory Information source: Patient Notes: 27-year-old male presents to ED for pain in his left jaw for 2 days. He states he chipped a tooth about 2 days ago and it has been throbbing aching and painful to eat since then. When I assessed his mouth he has practically his whole mouth has decayed teeth many of them broken chipped some down to the gumline. There are several places of inflammation to the left lower jaw. He states he just needs some antibiotics and something for the pain until he can follow-up with the dentist. TRAVEL OUTSIDE OF THE [place] IN LAST 30 DAYS: No - HPI Onset: Other - He states he has had dental pain off and on for years but for the last 2 days it has been much worse Quality of pain: Achy, Sharp, Throbbing Severity: Mild Pain Level: 2 Associated symptoms: Toothache Worsened by: Cold Relieved by: Nothing Similar symptoms previously: Yes Recently seen / treated by doctor/dentist: No - Related Data Allergies/Adverse Reactions: No Known Allergies Allergy (Verified 09/19/17 10:32) Past Medical History - General Information source: Patient - Social History Smoking Status: Current Every Day Smoker Cigarette use (# per day): Yes - Pack per day Chew tobacco use (# tins/day): No Smoking Education Provided: Yes - Less than 2 minutes Frequency of alcohol use: Occasional Drug Abuse: Marijuana Occupation: None Lives with: Parents Family History: Malignancy. denies: Arthritis, CAD, COPD, CVA, DM, Hyperlipidemia, Hypertension, Thyroid Disfunction Patient has suicidal ideation: No Patient has homicidal ideation: No - Past Medical History Cardiac Medical History: Reports: None Pulmonary Medical History: Reports: None EENT Medical History: Reports: None Neurological Medical History: Reports: None Endocrine Medical History: Reports: None Renal/ Medical History: Reports: None Malignancy Medical History: Reports None GI Medical History: Reports: None Musculoskeltal Medical History: Reports None Skin Medical History: Reports None Psychiatric Medical History: Reports: Hx Anxiety, Hx Depression - States he has stopped with the self-mutilation Traumatic Medical History: Reports: None Infectious Medical History: Reports: None Surgical Hx: Negative Past Surgical History: Reports: None - Immunizations Hx Diphtheria, Pertussis, Tetanus Vaccination: No Review of Systems - Review of Systems Constitutional: No symptoms reported EENT: Mouth pain, Dental problem Cardiovascular: No symptoms reported Respiratory: No symptoms reported Gastrointestinal: No symptoms reported Genitourinary: No symptoms reported Male Genitourinary: No symptoms reported Musculoskeletal: No symptoms reported Skin: No symptoms reported Hematologic/Lymphatic: No symptoms reported Neurological/Psychological: No symptoms reported -: Yes All other systems reviewed and negative Physical Exam - Vital signs Vitals: Temp Pulse Resp BP Pulse Ox 98.3 F 73 18 119/70 97 09/19/17 10:33 09/19/17 10:33 09/19/17 10:33 09/19/17 10:33 09/19/17 10:33 Interpretation: Normal - General General appearance: Appears well, Alert - HEENT Head: Normocephalic, Atraumatic Eyes: Normal Pupils: PERRL Ears: Normal External canal: Normal Tympanic membrane: Normal Sinus: Normal Nasal: Normal Mouth/Lips: Caries Mucous membranes: Normal Teeth diagram: 1 - Entire mouth has multiple decayed teeth mainly broken off at the gumline. #19 is the tooth that is bothering him the most today he said it was chipped 2 days ago. Pharynx: Normal Neck: Normal - Respiratory Respiratory status: No respiratory distress Chest status: Nontender Breath sounds: Normal Chest palpation: Normal - Cardiovascular Rhythm: Regular Heart sounds: Normal auscultation Murmur: No - Abdominal Inspection: Normal Distension: No distension Bowel sounds: Normal Tenderness: Nontender Organomegaly: No organomegaly - Back Back: Normal, Nontender - Extremities General upper extremity: Normal inspection, Nontender, Normal color, Normal ROM , Normal temperature General lower extremity: Normal inspection, Nontender, Normal color, Normal ROM , Normal temperature, Normal weight bearing. No: Rahat's sign - Neurological Neuro grossly intact: Yes Cognition: Normal Orientation: AAOx4 [place] Coma Scale Eye Opening: Spontaneous John Coma Scale Verbal: Oriented [place] Coma Scale Motor: Obeys Commands [place] Coma Scale Total: 15 Speech: Normal Motor strength normal: LUE, RUE, LLE, RLE Sensory: Normal - Psychological Associated symptoms: Normal affect, Normal mood - Skin Skin Temperature: Warm Skin Moisture: Dry Skin Color: Normal Course - Re-evaluation Re-evalutation: 09/19/17 14:50 Patient was treated with Penicillin VK lidocaine and ibuprofen and discharged home with prescription for penicillin and a tube of lidocaine to use on his painful teeth. Patient was instructed to please follow-up with oral surgeon or dentist as soon as possible for his dental problems. - Vital Signs Vital signs: Temp Pulse Resp BP Pulse Ox 98.3 F 73 18 119/70 97 09/19/17 10:33 09/19/17 10:33 09/19/17 10:33 09/19/17 10:33 09/19/17 10:33 Discharge - Discharge Clinical Impression: Pain due to dental caries Condition: Stable Disposition: HOME, SELF-CARE Additional Instructions: TOOTHACHE: Your pain is due to dental decay. The tooth must be repaired in order for you to feel better. You will, therefore, be referred to a dentist. We do not have dentists on the staff at [facility]. Severe swelling or drainage around a tooth usually means a dental abscess. This also requires evaluation and treatment by the dentist, but antibiotics may be prescribed while awaiting dental treatment. You should be rechecked immediately if you develop major swelling of the face, increasing pain, a lump in the jaw or gums, headache, difficulty swallowing, or fever. PENICILLIN V K: You have been given a prescription for Penicillin VK. Your physician has determined that this is the best antibiotic for your condition. Pen VK can be taken with meals, however more of the antibiotic gets into the bloodstream if it's taken on an empty stomach. Penicillin usually has no side effects. However, allergy to penicillins is common. If you have had an allergic reaction to any drug of the penicillin family, you should never take any other penicillin. Notify your doctor at once if you develop hives, itching, swelling, faintness, or shortness of breath. Ibuprofen Ibuprofen is an excellent, safe drug for pain control. In addition, it has potent antiinflammatory effects which are beneficial, especially in the treatment of injuries, arthritis, or tendonitis. It's best to take ibuprofen with food. Persons with ulcer disease or allergy to aspirin should notify their physician of this before taking ibuprofen. Take the medication exactly as prescribed. Don't take additional doses unless instructed to do so by your doctor. If you develop wheezing, shortness of breath, hives, faintness, stomach pain, vomiting, or dark black stools, return for re-evaluation at once. FOLLOW-UP CARE: You have been referred for follow-up care to the dentists listed below. Call the dentists office for an appointment as you were instructed or within the next two days. If you experience worsening or a significant change in your symptoms, notify the physician immediately or return to the Emergency Department at any time for re-evaluation. [facility] [address] [place], [place] Monday mornings, by appointment [facility] [address] [place] [address] [facility] [address] [facility] [address] [facility] [address] [facility] [address] [facility] [email or web address] [facility] [address] [place] [address] Monday- 8:00am to 5:00 pm Will see patients from other [facility]. Charges based on income and family size and accepts Medicare, Medicaid, and Insurances Will pull molars [facility] Student [facility] [address] Hours of Operation 8:00 am - 4:30 pm weekdays The following dental offices accept Medicaid: [facility] Dr. [address] Dr. Leyva Dr. Collins Dr. Leahy Mode [facility] L[place], and Marco oral surgery Dr. Lofton ([place]) Dr. Douglas ([place]) [facility] Drs. Wise and Fletcher ([place]) Dr. Junior ([place]) [facility] Dr. Lewis ([place]) Drs. Marion and ([place]) Medicaid Care Line Prescriptions: Penicillin V Potassium [Penicillin Vk 500 mg Tablet] 500 mg PO BID #20 tablet Forms: Smoking Cessation Education, Return to School
== END 2017-09-19 12:44 | disposition home or self-care (01) ==
LOC: ER 10:29
DX: K02.9 Dental caries, unspecified (principal); R68.84 Jaw pain; F17.210 Nicotine dependence, cigarettes, uncomplicated
CPT/HCPCS: 99282; J3490

== ENCOUNTER 2018-05-30 02:00 | Emergency (ER) | payer SELFPAY ==
--- NOTE | 2018-05-30 02:55 | ER Document Report ---
ED General - General Chief Complaint: Overdose Stated Complaint: POSSIBLE OVERDOSE Time Seen by Provider: 05/30/18 02:45 Mode of Arrival: Medic Information source: Patient Notes: 27-year-old male brought to the emergency department by EMS for ingestion of cough medicine. Patient's parents state that they heard a loud thud and went in to find the patient lying on the ground. They state that he was not acting right so they contacted EMS. Patient admits to ingesting cough syrup. Patient says he was trying to get high. He denies any other drug use. Patient denies any alcohol. TRAVEL OUTSIDE OF THE [place] IN LAST 30 DAYS: No - HPI Onset: Just prior to arrival Onset/Duration: Sudden Quality of pain: No pain Severity: Mild Pain Level: Denies Associated symptoms: None Exacerbated by: Denies Relieved by: Denies Similar symptoms previously: No Recently seen / treated by doctor: No - Related Data Allergies/Adverse Reactions: No Known Allergies Allergy (Verified 09/19/17 10:32) Past Medical History - General Information source: Patient - Social History Smoking Status: Current Every Day Smoker Family History: Malignancy. denies: Arthritis, CAD, COPD, CVA, DM, Hyperlipidemia, Hypertension, Thyroid Disfunction Renal/ Medical History: Denies: Hx Peritoneal Dialysis Psychiatric Medical History: Reports: Hx Anxiety, Hx Depression - States he has stopped with the self-mutilation - Immunizations Hx Diphtheria, Pertussis, Tetanus Vaccination: No Review of Systems - Review of Systems Constitutional: No symptoms reported EENT: No symptoms reported Cardiovascular: No symptoms reported Respiratory: No symptoms reported Gastrointestinal: No symptoms reported Genitourinary: No symptoms reported Musculoskeletal: No symptoms reported Skin: No symptoms reported Hematologic/Lymphatic: No symptoms reported Neurological/Psychological: No symptoms reported -: Yes All other systems reviewed and negative Physical Exam - Vital signs Vitals: Temp Resp BP Pulse Ox 98.9 F 20 126/79 H 100 05/30/18 02:16 05/30/18 02:16 05/30/18 02:16 05/30/18 02:16 Interpretation: Normal - Notes Notes: PHYSICAL EXAMINATION: GENERAL: Intoxicated. HEAD: Atraumatic, normocephalic. EYES: Pupils dilated, round and reactive to light, extraocular movements intact , sclera anicteric, conjunctiva are normal. +nystagmus ENT: Nares patent, oropharynx clear without exudates. Moist mucous membranes. NECK: Normal range of motion, supple without lymphadenopathy LUNGS: Breath sounds clear to auscultation bilaterally and equal. No wheezes rales or rhonchi. HEART: Regular rate and rhythm without murmurs ABDOMEN: Soft, nontender, nondistended abdomen. No guarding, no rebound. No masses appreciated. Musculoskeletal: Normal range of motion, no pitting or edema. No cyanosis. NEUROLOGICAL: Cranial nerves grossly intact. Normal speech, normal gait. Normal sensory, motor exams PSYCH: Normal mood, normal affect. SKIN: Warm, Dry, normal turgor, no rashes or lesions noted. Course - Re-evaluation Re-evalutation: 05/30/18 03:02 I spoke with Jarrod at [facility]. Dextromorphan can produce tachycardia, ataxia, nystagmus. Fluids for tachycardia. Supportive care. If too restless, consider benzos. 05/30/18 05:47 Patient re-evaluated. Awake and alert. No complaints. Vitals stable. Will discharge home. Parents contracted to pick him up. - Vital Signs Vital signs: Temp Pulse Resp BP Pulse Ox 98.9 F 21 H 117/81 97 05/30/18 02:16 05/30/18 05:01 05/30/18 05:00 05/30/18 05:01 - Laboratory Result Diagrams: 05/30/18 02:55 05/30/18 02:55 Laboratory results interpreted by me: 05/30/18 05/30/18 02:55 02:55 WBC 10.8 H RDW 14.4 H Sodium 146.5 H Chloride 109 H Creatinine 1.26 H AST 81 H Total Protein 5.8 L Salicylates < 1.0 L Acetaminophen < 10 L - EKG Interpretation by Me Additional EKG results interpreted by me: 05/30/18 03:22 EKG: Ventricular rate 89, TN interval 152, QRS duration 98, QTc 429, normal sinus rhythm. No ischemic changes. Discharge - Discharge Clinical Impression: Drug overdose, intentional Qualifiers: Encounter type: initial encounter Qualified Code(s): T50.902A - Poisoning by unspecified drugs, medicaments and biological substances, intentional self-harm , initial encounter Condition: Good Disposition: HOME, SELF-CARE Instructions: Instructions for Home Care Following a Drug Overdose ([facility]) Referrals: PARADISE BARLOW MD [COMMUNITY BASED STAFF] - Follow up as needed
[2018-05-30] MEDS ORDERED: NORMAL SALINE 1000 ML 1,000 ML IV ONE (03:04)
[2018-05-30 03:12] LABS: ABSOLUTE BASOPHILS # (AUTO) 0.1 10^3/uL (0.0-0.2); ABSOLUTE LYMPHOCYTES (AUTO) 2.1 10^3/uL (0.5-4.7); ABSOLUTE NEUT (AUTO) 7.6 10^3/uL (1.7-8.2); BASOPHILS % (AUTO) 0.8 % (0-2); EOSINOPHILS % (AUTO) 0.3 % (0-6); HEMATOCRIT 44.5 % (37.9-51.0); HEMOGLOBIN 15.8 g/dL (13.5-17.0); LYMPHOCYTES % (AUTO) 19.8 % (13-45); MEAN CORPUSCULAR HEMOGLOBIN 32.3 pg (27.0-33.4); MEAN CORPUSCULAR HGB CONC 35.5 g/dL (32.0-36.0); MEAN CORPUSCULAR VOLUME 91 fl (80-97); PLATELET COUNT 174 10^3/uL (150-450); RED BLOOD COUNT 4.88 10^6/uL (4.35-5.55); RED CELL DISTRIBUTION WIDTH 14.4 % (11.5-14.0); SEGMENTED NEUTROPHILS % (AUTO) 70.1 % (42-78); TOTAL CELLS COUNTED % (AUTO) 100 %; WHITE BLOOD COUNT 10.8 10^3/uL (4.0-10.5)
[2018-05-30 03:26] LABS: ALANINE AMINOTRANSFERASE 43 U/L (21-72); ALBUMIN 3.6 g/dL (3.5-5.0); ALKALINE PHOSPHATASE 39 U/L (38-126); ANION GAP 10 (5-19); ASPARTATE AMINO TRANSFERASE 81 U/L (17-59); BILIRUBIN,DIRECT 0.2 mg/dL (0.0-0.4); BILIRUBIN,TOTAL 1.1 mg/dL (0.2-1.3); BLOOD UREA NITROGEN 11 mg/dL (7-20); CALCIUM 8.9 mg/dL (8.4-10.2); CARBON DIOXIDE 28 mmol/L (22-30); CHLORIDE 109 mmol/L (98-107); GLUCOSE 83 mg/dL (75-110); POTASSIUM 4.4 mmol/L (3.6-5.0); SODIUM 146.5 mmol/L (137-145); TOTAL PROTEIN 5.8 g/dL (6.3-8.2)
[2018-05-30 03:27] LABS: ACETAMINOPHEN < 10 ug/mL (10-30); ALCOHOL < 10 mg/dL (NONE DETECTED); SALICYLATE < 1.0 mg/dL (2.0-20.0)
--- NOTE | 2018-05-30 03:34 | RADIOLOGY REPORT (SQ) ---
EXAM DESCRIPTION: CT HEAD WITHOUT IV CONTRAST COMPLETED DATE/TME: 05/30/2018 02:53 CLINICAL HISTORY: fall COMPARISON: None available TECHNIQUE: Axial CT of the head obtained from the skull apex to the skull base without contrast. FINDINGS: No acute intracranial hemorrhage identified. No mass, mass effect, shift of the midline, abnormal extra-axial fluid collection or CT evidence of acute ischemic change identified. The ventricular system is unremarkable. No acute abnormalities of the supratentorial white matter, basal ganglia, cerebellum, or brainstem. The visualized paranasal sinuses and the mastoids are clear. No skull fracture identified. Visualized orbits and globes are unremarkable. DLP: 2057.57 mGy-cm IMPRESSION: 1. No acute intracranial abnormality identified. This exam was performed according to our departmental dose-optimization program, which includes automated exposure control, adjustment of the mA and/or kV according to patient size and/or use of iterative reconstruction technique.
[2018-05-30 04:17] LABS: APPEARANCE,URINE CLEAR; BILIRUBIN,URINE NEGATIVE (NEGATIVE); COLOR,URINE STRAW; GLUCOSE, URINE NEGATIVE (NEGATIVE); KETONES,URINE NEGATIVE (NEGATIVE); LEUKOCYTE ESTERASE,URINE NEGATIVE (NEGATIVE); NITRITE,URINE NEGATIVE (NEGATIVE); PROTEIN,URINE NEGATIVE (NEGATIVE); URINE SPECIFIC GRAVITY 1.003; UROBILINOGEN,URINE NEGATIVE mg/dL (<2.0)
[2018-05-30 04:33] LABS: URINE AMPHETAMINES SCREEN NEGATIVE; URINE BARBITURATES SCREEN NEGATIVE; URINE BENZODIAZEPINES SCREEN NEGATIVE; URINE COCAINE SCREEN NEGATIVE; URINE MARIJUANA (THC) SCREEN UNCONFIRMED POSITIVE; URINE METHADONE SCREEN NEGATIVE; URINE PHENCYCLIDINE SCREEN UNCONFIRMED POSITIVE
[2018-05-30 06:15] VITALS: BP 118/70
--- NOTE | 2018-05-30 21:48 | EKG REPORT ---
SEVERITY:- NORMAL ECG - SINUS RHYTHM : Confirmed by: Danii Del Rosario MD 30-May-2018 21:47:39
== END 2018-05-30 06:15 | disposition home or self-care (01) ==
LOC: ER 02:00
DX: T48.4X1A Poisoning by expectorants, accidental (unintentional), initial encounter (principal); X58.XXXA Exposure to other specified factors, initial encounter; Y92.009 Unspecified place in unspecified non-institutional (private) residence as the place of occurrence of the external cause; F17.200 Nicotine dependence, unspecified, uncomplicated
CPT/HCPCS: 93005; 99285; 96360; 51701; 36415; 80307 ×4; 85025; 80053; 81001; 70450; 93010; J7030

== ENCOUNTER 2018-09-07 02:32 | Emergency (ER) | payer SELFPAY ==
[2018-09-07] MEDS ORDERED: NORMAL SALINE 1000 ML 1,000 ML IV ONE ×3 (02:37→12:24)
--- NOTE | 2018-09-07 02:37 | ER Document Report ---
ED Psych Disorder / Suicide - General Stated Complaint: POSSIBLE OVERDOSE Time Seen by Provider: 09/07/18 02:34 Mode of Arrival: Stretcher Information source: Patient, Emergency Med Personnel TRAVEL OUTSIDE OF THE [place] IN LAST 30 DAYS: No - HPI Patient complains to provider of: Overdose, Suicidal ideation, Suicidal attempt Onset: Just prior to arrival Quality of pain: No pain Suicide Risk Factors: Depressed, Male, Substance abuse Suicide Attempt Method: Overdose Normal mood: No Associated symptoms: Depressed, Flat affect Similar symptoms previously: Yes Recently seen / treated by doctor: No Notes: Patient is a 28-year-old male brought to the emergency room by EMS for intentional overdose, patient reports that he is suicidal, and took approximately 90 [id number] sleeping pills around 1:00 in the morning, he does admit this was an attempt to commit suicide, he is a history of attempts in the past with previous hospitalizations as well, he denies any symptoms at present time - Related Data Allergies/Adverse Reactions: No Known Allergies Allergy (Verified 09/19/17 10:32) Past Medical History - General Information source: Patient - Social History Smoking Status: Unknown if Ever Smoked Drug Abuse: Marijuana Family History: Malignancy. denies: Arthritis, CAD, COPD, CVA, DM, Hyperlipidemia, Hypertension, Thyroid Disfunction Renal/ Medical History: Denies: Hx Peritoneal Dialysis Psychiatric Medical History: Reports: Hx Anxiety, Hx Depression - States he has stopped with the self-mutilation - Immunizations Hx Diphtheria, Pertussis, Tetanus Vaccination: No Review of Systems - Review of Systems Constitutional: No symptoms reported EENT: No symptoms reported Cardiovascular: No symptoms reported Respiratory: No symptoms reported Gastrointestinal: No symptoms reported Genitourinary: No symptoms reported Male Genitourinary: No symptoms reported Musculoskeletal: No symptoms reported Skin: No symptoms reported Hematologic/Lymphatic: No symptoms reported Neurological/Psychological: See HPI -: Yes All other systems reviewed and negative Physical Exam - Vital signs Vitals: Resp Pulse Ox 31 H 97 09/07/18 02:48 09/07/18 02:48 Interpretation: Tachycardic - General General appearance: Appears well, Alert - HEENT Head: Normocephalic, Atraumatic Eyes: Normal Pupils: PERRL - Respiratory Respiratory status: No respiratory distress Chest status: Nontender Breath sounds: Normal Chest palpation: Normal - Cardiovascular Rhythm: Regular Heart sounds: Normal auscultation Murmur: No - Abdominal Inspection: Normal Distension: No distension Bowel sounds: Normal Tenderness: Nontender Organomegaly: No organomegaly - Back Back: Normal, Nontender - Extremities General upper extremity: Normal inspection, Nontender, Normal color, Normal ROM , Normal temperature General lower extremity: Normal inspection, Nontender, Normal color, Normal ROM , Normal temperature, Normal weight bearing. No: Rahat's sign - Neurological Neuro grossly intact: Yes Cognition: Normal Orientation: AAOx4 Vanderbilt Coma Scale Eye Opening: Spontaneous John Coma Scale Verbal: Oriented Vanderbilt Coma Scale Motor: Obeys Commands John Coma Scale Total: 15 Speech: Normal Motor strength normal: LUE, RUE, LLE, RLE Sensory: Normal - Psychological Associated symptoms: Depressed, Flat affect - Skin Skin Temperature: Warm Skin Moisture: Dry Skin Color: Normal Course - Re-evaluation Re-evalutation: 09/07/18 03:26 Called to room by nursing staff as patient is actively vomiting, he is also appears to have difficulty breathing, questionable aspiration of activated charcoal, he was given 4 mg of IV Zofran and an albuterol breathing treatment, he remains tachycardic and now quite confused with mumbling speech, 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, a repeat call was placed to poison control, they did recommend benzos for agitation, 1 mg of Ativan has been ordered and patient has been removed to a trauma room so that I can more closely observe him for any signs of acute decompensation, at this point in time patient appears to be able to protect his airway as he is awake, however if he has any other signs of difficulty breathing or change in mental status it may require intubation to protect his airway 09/07/18 06:32 Patient remains tachycardic, appears to be hallucinating at times and staring off and space, he is not yet medically cleared for mental health evaluation secondary to anticholinergic toxidrome, patient was discussed with Dr Villegas , who will continue to monitor patient until he is cleared for psychiatric treatment - Vital Signs Vital signs: Temp Pulse Resp BP Pulse Ox 27 H 138/106 H 99 09/07/18 05:01 09/07/18 05:01 09/07/18 05:01 - Laboratory Result Diagrams: 09/07/18 02:49 09/07/18 02:49 Laboratory results interpreted by me: 09/07/18 09/07/18 02:49 02:49 WBC 20.9 H Hgb 18.0 H Hct 51.1 H Abs Neuts (Manual) 14.8 H Abs Monocytes (Manual) 2.1 H Potassium 3.3 L Glucose 117 H Salicylates < 1.0 L Acetaminophen < 10 L - EKG Interpretation by Me EKG shows normal: Sinus rhythm Rate: Tachycardia Discharge - Discharge Clinical Impression: Overdose, Anticholinergic syndrome Condition: Fair Disposition: PSYCH HOSP/UNIT
[2018-09-07 03:01] LABS: HEMATOCRIT 51.1 % (37.9-51.0); MEAN CORPUSCULAR HGB CONC 35.2 g/dL (32.0-36.0); MEAN CORPUSCULAR VOLUME 94 fl (80-97); PLATELET COUNT 189 10^3/uL (150-450); RED BLOOD COUNT 5.44 10^6/uL (4.35-5.55); WHITE BLOOD COUNT 20.9 10^3/uL (4.0-10.5)
[2018-09-07 03:18] LABS: ABSOLUTE MONOCYTES # (MANUAL) 2.1 10^3/uL (0.1-1.4); ABSOLUTE NEUTROPHILS# (MANUAL) 14.8 10^3/uL (1.7-8.2); ALANINE AMINOTRANSFERASE 61 U/L (21-72); ALBUMIN 4.6 g/dL (3.5-5.0); ALKALINE PHOSPHATASE 75 U/L (38-126); ANION GAP 13 (5-19); ASPARTATE AMINO TRANSFERASE 34 U/L (17-59); BASOPHILS % (MANUAL) 0 % (0-2); BILIRUBIN,DIRECT 0.3 mg/dL (0.0-0.4); BLOOD UREA NITROGEN 12 mg/dL (7-20); CALCIUM 9.7 mg/dL (8.4-10.2); CARBON DIOXIDE 25 mmol/L (22-30); CHLORIDE 105 mmol/L (98-107); EOSINOPHILS % (MANUAL) 0 % (0-6); GLUCOSE 117 mg/dL (75-110); LYMPHOCYTES % (MANUAL) 17 % (13-45); MONOCYTES % (MANUAL) 10 % (3-13); POTASSIUM 3.3 mmol/L (3.6-5.0); SEGMENTED NEUTROPHILS % (MAN) 71 % (42-78); SODIUM 142.6 mmol/L (137-145); TOTAL CELLS COUNTED 100; TOTAL PROTEIN 7.4 g/dL (6.3-8.2)
[2018-09-07 03:19] LABS: ACETAMINOPHEN < 10 ug/mL (10-30); ALCOHOL < 10 mg/dL (NONE DETECTED); PLATELET COMMENT ADEQUATE; RBC MORPHOLOGY COMMENT NORMO-CYTIC/CHROMIC; SALICYLATE < 1.0 mg/dL (2.0-20.0); TOXIC GRANULATION SLIGHT; TOXIC VACUOLATION PRESENT
[2018-09-07] MEDS ORDERED: LORAZEPAM INJ 2 MG/1 ML VIAL IV ONE ×7 (03:23→15:08)
--- NOTE | 2018-09-07 04:39 | RADIOLOGY REPORT (SQ) ---
EXAM DESCRIPTION: X-ray single view chest. CLINICAL HISTORY: 28 years Male, sob, possible aspiration COMPARISON: Prior two-view chest performed on 03/08/2016. TECHNIQUE: Single portable view of the chest performed on 09/07/2018 at 3:25 AM FINDINGS: The lungs are well expanded and are clear. There is no evidence of a pneumothorax. The cardiac silhouette is normal in size and configuration. The mediastinal contours are normal. No acute osseous abnormality is identified. No focal soft tissue abnormalities are seen. Lines and tubes: None. IMPRESSION: No evidence of acute intrathoracic disease.
--- NOTE | 2018-09-07 08:03 | EKG REPORT ---
SEVERITY:- ABNORMAL ECG - SINUS TACHYCARDIA PROBABLE LEFT VENTRICULAR HYPERTROPHY INFERIOR Q WAVES, PROBABLY NORMAL VARIATION ABNORMAL T, CONSIDER ISCHEMIA, INFERIOR LEADS : Confirmed by: Ashkan Bhardwaj MD 07-Sep-2018 08:03:07
[2018-09-07 08:28] LABS: CREATINE KINASE 70 U/L (55-170)
[2018-09-07 08:32] LABS: ACETAMINOPHEN < 10 ug/mL (10-30)
[2018-09-07] MEDS ORDERED: HALOPERIDOL LACTATE INJ 5 MG/1 ML VIAL IV ONE ×2 (09:50→12:24)
--- NOTE | 2018-09-07 09:50 | ER Document Report ---
Doctor's Note Notes: 09/07/18 09:49 Assumed care of this patient from previous provider. This 28-year-old gentleman presented for evaluation of an ingestion, it appears to be with self-injurious intent. He is demonstrating diminished capacity at this time with glazed over eyes and limited insight. He is however writhing in bed and has attempted more than once to get out of bed. Because of the concern for him potentially harming himself have administered Ativan IV. His tachycardia has improved his agitation seems to be worsening as he becomes progressively more sober. Will redraw an acetaminophen level, will draw CK, will also draw BMP and CBC. 09/07/18 17:05 CBC is somewhat downtrending, the patient does not have any obvious infection at this time, believe this is a spurious lab value. His CK is normal, his repeat acetaminophen level is 0, his BMP is reassuring. We will continue maintenance fluids for this patient. Bolus. He is received multiple doses of Ativan, he has been dosed with Valium as well for a faster onset of action. He continues to become increasingly aggressive with staff as his sobriety results. Because of this concern will administer as needed doses of benzodiazepine for him. We will continue to monitor emergency department under IVC at this time. Have signed out the care of this patient he Dr. Carmona who is in agreement with current course.
[2018-09-07 09:58] LABS: ANION GAP 12 (5-19); BLOOD UREA NITROGEN 11 mg/dL (7-20); CALCIUM 9.4 mg/dL (8.4-10.2); CARBON DIOXIDE 22 mmol/L (22-30); CHLORIDE 109 mmol/L (98-107); GLUCOSE 99 mg/dL (75-110); POTASSIUM 4.2 mmol/L (3.6-5.0); SODIUM 142.8 mmol/L (137-145)
[2018-09-07 10:06] LABS: ABSOLUTE BASOPHILS # (AUTO) 0.1 10^3/uL (0.0-0.2); ABSOLUTE LYMPHOCYTES (AUTO) 2.5 10^3/uL (0.5-4.7); ABSOLUTE MONOCYTES (AUTO) 1.4 10^3/uL (0.1-1.4); ABSOLUTE NEUT (AUTO) 15.2 10^3/uL (1.7-8.2); BASOPHILS % (AUTO) 0.4 % (0-2); EOSINOPHILS % (AUTO) 0.1 % (0-6); HEMATOCRIT 47.9 % (37.9-51.0); HEMOGLOBIN 16.4 g/dL (13.5-17.0); LYMPHOCYTES % (AUTO) 12.8 % (13-45); MEAN CORPUSCULAR HEMOGLOBIN 32.3 pg (27.0-33.4); MEAN CORPUSCULAR HGB CONC 34.3 g/dL (32.0-36.0); MEAN CORPUSCULAR VOLUME 94 fl (80-97); MONOCYTES % (AUTO) 7.4 % (3-13); PLATELET COUNT 164 10^3/uL (150-450); RED BLOOD COUNT 5.09 10^6/uL (4.35-5.55); SEGMENTED NEUTROPHILS % (AUTO) 79.3 % (42-78); TOTAL CELLS COUNTED % (AUTO) 100 %; WHITE BLOOD COUNT 19.2 10^3/uL (4.0-10.5)
--- NOTE | 2018-09-07 15:02 | PSYCHOLOGICAL NOTE ---
Psych Note - Psych Note Date seen by psych provider: 09/07/18 Time seen by psych provider: 07:45 Psych Note: Reason for Consult: Intentional overdose Patient is a 28-year-old male brought to the emergency room by EMS for intentional overdose. Patient is unable to engage in evaluation. He is actively hallucinating and is unwilling or unable to speak with clinician. It is noted the patient have been answering questions inappropriately to nursing staff. Patient is noted to flailing his arms around and shifting his eyes around the room. Patient is noted to have arrived to [facility] asymptomatic and disclosed he overdosed on sleeping pills intentionally. Clinician attempted to contact patient's next of kin/person to notify, patient' s mother Sulema; left message. Clinician received phone call back from patient's mother. She reports she did not know the patient was in the hospital. She disclosed that she will be coming to the hospital after work at approximately 5pm. She reports the patient needs help with his mental health and confirms the patient has had multiple suicide attempts in the past. 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 Patient arrived to [facility] disclosing intentional overdose of sleeping pills with intent at killing himself. Patient is currently not medically cleared and is actively hallucinating. Patient will be reevaluated. Dr. Hart was consulted and the care management this patient; attending physicians in agreement with her conditions and disposition
[2018-09-07] MEDS ORDERED: DIAZEPAM INJ 10 MG/2 ML DISP.SYRIN IV ONE (15:32)
[2018-09-07] MEDS ORDERED: RINGERS SOLUTION,LACTATED 1,000 ML IV ONE (17:05)
[2018-09-07] MEDS ORDERED: DIAZEPAM INJ 10 MG/2 ML DISP.SYRIN IV PRN (17:06)
[2018-09-07 20:30] LABS: APPEARANCE,URINE CLEAR; BILIRUBIN,URINE NEGATIVE (NEGATIVE); COLOR,URINE STRAW; GLUCOSE, URINE NEGATIVE (NEGATIVE); KETONES,URINE NEGATIVE (NEGATIVE); LEUKOCYTE ESTERASE,URINE NEGATIVE (NEGATIVE); NITRITE,URINE NEGATIVE (NEGATIVE); PROTEIN,URINE NEGATIVE (NEGATIVE); URINE SPECIFIC GRAVITY 1.008; UROBILINOGEN,URINE NEGATIVE mg/dL (<2.0)
[2018-09-07 20:45] LABS: URINE AMPHETAMINES SCREEN NEGATIVE; URINE BARBITURATES SCREEN NEGATIVE; URINE BENZODIAZEPINES SCREEN UNCONFIRMED POSITIVE; URINE COCAINE SCREEN NEGATIVE; URINE MARIJUANA (THC) SCREEN UNCONFIRMED POSITIVE; URINE METHADONE SCREEN NEGATIVE; URINE PHENCYCLIDINE SCREEN NEGATIVE
--- NOTE | 2018-09-07 23:19 | ER Document Report ---
Doctor's Note Notes: 09/07/18 23:18 This is a 28-year-old man with a history of prior suicide attempts who presented last night after an overdose of sleeping pills. Patient was quite agitated yesterday and at times today and is required physical restraints. He was taking Ativan a few hours ago. He is resting comfortably and easily aroused. He states that he did try and take an overdose (intentionally) with sleeping pills. He is previously been followed up at [facility]. His vital signs are 118/89 blood pressure, pulse of 89, O2 sat 98% on room air, respiratory rate 18. He has been afebrile. He remains clinically stable and will be reevaluated by psychiatry in the morning.
[2018-09-08 09:42] LABS: ABSOLUTE BASOPHILS # (AUTO) 0.1 10^3/uL (0.0-0.2); ABSOLUTE EOSINOPHILS # (AUTO) 0.4 10^3/uL (0.0-0.6); ABSOLUTE LYMPHOCYTES (AUTO) 2.9 10^3/uL (0.5-4.7); ABSOLUTE MONOCYTES (AUTO) 0.8 10^3/uL (0.1-1.4); ABSOLUTE NEUT (AUTO) 8.3 10^3/uL (1.7-8.2); BASOPHILS % (AUTO) 0.8 % (0-2); EOSINOPHILS % (AUTO) 3.2 % (0-6); HEMATOCRIT 49.3 % (37.9-51.0); HEMOGLOBIN 16.9 g/dL (13.5-17.0); MEAN CORPUSCULAR HEMOGLOBIN 32.3 pg (27.0-33.4); MEAN CORPUSCULAR HGB CONC 34.2 g/dL (32.0-36.0); MEAN CORPUSCULAR VOLUME 94 fl (80-97); MONOCYTES % (AUTO) 6.6 % (3-13); PLATELET COUNT 160 10^3/uL (150-450); RED BLOOD COUNT 5.22 10^6/uL (4.35-5.55); RED CELL DISTRIBUTION WIDTH 13.8 % (11.5-14.0); SEGMENTED NEUTROPHILS % (AUTO) 66.4 % (42-78); TOTAL CELLS COUNTED % (AUTO) 100 %; WHITE BLOOD COUNT 12.5 10^3/uL (4.0-10.5)
[2018-09-08 09:55] LABS: ANION GAP 11 (5-19); BLOOD UREA NITROGEN 11 mg/dL (7-20); CARBON DIOXIDE 24 mmol/L (22-30); CHLORIDE 107 mmol/L (98-107); GLUCOSE 80 mg/dL (75-110); POTASSIUM 4.2 mmol/L (3.6-5.0); SODIUM 141.6 mmol/L (137-145)
--- NOTE | 2018-09-08 10:46 | ER Document Report ---
Doctor's Note Notes: 09/08/18 11:01 This 28-year-old man presented for evaluation of an intentional overdose in attempt to kill himself. Following the ingestion of an unknown quantity of cough and cold tablets he was profoundly altered, through the day yesterday he cleared steadily. Today he is oriented appropriate and pleasant. He answers questions, he notes that he has had horrible depression which is been refractory to treatment in the outpatient setting. He has had at least 7 attempts to kill himself in the past he is attempted hanging, attempted to shoot himself once, and is attempted ingestions multiple times. He notes that he just has a persistent sense that he would like to be . Currently does not have an active plan but notes that he has no desire to live. Believe this patient would benefit from further evaluation and medical optimization, he is currently taking Lexapro but has not taken it in approximately 1 month. His labs were repeated today as yesterday he did demonstrate a leukocytosis, his count is now normalized, his chemistry is normal as well, he is able to tolerate p.o. He is well-appearing otherwise currently is medically cleared.
--- NOTE | 2018-09-09 09:15 | ER Document Report ---
Doctor's Note Notes: As the rounding physician this AM, I assessed the patient's labs, vitals, and records. No concerning findings this morning. Patient denies any acute complaints. 09/09/18 09:14 This 28-year-old man presented for evaluation of an intentional overdose in attempt to kill himself. Following the ingestion of an unknown quantity of cough and cold tablets he was profoundly altered, through the day yesterday he cleared steadily. Today he is oriented appropriate and pleasant. He answers questions, he notes that he has had horrible depression which is been refractory to treatment in the outpatient setting. He has had at least 7 attempts to kill himself in the past he is attempted hanging, attempted to shoot himself once, and is attempted ingestions multiple times. He notes that he just has a persistent sense that he would like to be . Currently does not have an active plan but notes that he has no desire to live. Believe this patient would benefit from further evaluation and medical optimization, he is currently taking Lexapro but has not taken it in approximately 1 month. His labs were repeated today as yesterday he did demonstrate a leukocytosis, his count is now normalized, his chemistry is normal as well, he is able to tolerate p.o. He is well-appearing otherwise currently is medically cleared. 09/09/18 09:16 Impression\plan: Patient is recommended for IVC. [facility] disclosing intentional overdose of sleeping pills with intent at killing himself. Patient is currently not medically cleared and is actively hallucinating. Patient will be reevaluated. Dr. Hart was consulted and the care management this patient; attending physicians in agreement with her conditions and disposition 09/09/18 14:39 Home-going medication recommendations include Depakote 500 mg twice daily and BuSpar 10 mg twice daily. Patient did receive this medication in the emergency department and had no adverse reaction. He is being discharged and to the custody of his mother who is at the bedside.
[2018-09-09] MEDS ORDERED: DIVALPROEX SODIUM 250 MG TABLET.DR PO ONE (12:33)
[2018-09-09] MEDS ORDERED: BUSPIRONE HCL 10 MG TABLET PO ONE (12:33)
[2018-09-09 12:43] VITALS: BP 114/72
== END 2018-09-09 14:48 | disposition home or self-care (01) ==
LOC: ER 02:32
DX: T44.3X2A Poisoning by other parasympatholytics [anticholinergics and antimuscarinics] and spasmolytics, intentional self-harm, initial encounter (principal); R00.0 Tachycardia, unspecified; R11.10 Vomiting, unspecified; R41.0 Disorientation, unspecified; R45.1 Restlessness and agitation; D72.829 Elevated white blood cell count, unspecified; Z78.1 Physical restraint status; F12.10 Cannabis abuse, uncomplicated
CPT/HCPCS: 93005; 96376; 99285; 96361; 96374; 96375; 36415; 80307 ×4; 82550; 85025; 80048; 80053; 81001; 71045; 93010; J3360; J1630; J2060; J7030; J7120

== ENCOUNTER 2018-11-21 10:13 | Emergency (ER) | payer SELFPAY ==
[2018-11-21] MEDS ORDERED: DOCUSATE SODIUM 100 MG CAPSULE LFT_EAR ONE (10:59)
--- NOTE | 2018-11-21 11:12 | ER Document Report ---
ED ENT - General Chief Complaint: Ear Pain Stated Complaint: EAR ISSUE Time Seen by Provider: 11/21/18 10:52 Mode of Arrival: Ambulatory Information source: Patient Notes: 28-year-old male presents to ED for complaint of ear pressure and pain and decreased hearing out of his left ear. He states he has not been using Q-tips in his ears but the earwax is very impacted in the left ear. It is somewhat impacted in the right but he can still hear and you can still see the tympanic membrane. Patient is alert and oriented respirations regular and unlabored speaking in full sentences walks with a even steady gait. TRAVEL OUTSIDE OF THE [place] IN LAST 30 DAYS: No - HPI Patient complains to provider of: Ear problem Onset: Last week Onset/Duration: Gradual Quality of pain: Dull Severity: Mild Pain Level: 1 Location of pain: Ears - Left ear Associated symptoms: Ear pain Similar symptoms previously: Yes Recently seen / treated by doctor: No - Related Data Allergies/Adverse Reactions: No Known Allergies Allergy (Verified 09/08/18 08:31) Past Medical History - General Information source: Patient - Social History Smoking Status: Current Every Day Smoker Cigarette use (# per day): Yes - Pack per day Chew tobacco use (# tins/day): No Smoking Education Provided: Yes - 4 minutes Frequency of alcohol use: Social Drug Abuse: Marijuana Occupation: [employer] Lives with: Parents Family History: Malignancy. denies: Arthritis, CAD, COPD, CVA, DM, Hyperlipidemia, Hypertension, Thyroid Disfunction Patient has suicidal ideation: No Patient has homicidal ideation: No - Past Medical History Cardiac Medical History: Reports: None Pulmonary Medical History: Reports: None EENT Medical History: Reports: None Neurological Medical History: Reports: None Endocrine Medical History: Reports: None Renal/ Medical History: Reports: None Malignancy Medical History: Reports None GI Medical History: Reports: None Musculoskeletal Medical History: Reports None Psychiatric Medical History: Reports: Hx Anxiety, Hx Depression - States he has stopped with the self-mutilation Traumatic Medical History: Reports: None Infectious Medical History: Reports: None Past Surgical History: Reports: Hx Inguinal Hernia - Immunizations Immunizations up to date: Yes Hx Diphtheria, Pertussis, Tetanus Vaccination: No Review of Systems - Review of Systems Constitutional: No symptoms reported EENT: Ear pain - Decreased hearing and left ear due to earwax Cardiovascular: No symptoms reported Respiratory: No symptoms reported Gastrointestinal: No symptoms reported Genitourinary: No symptoms reported Male Genitourinary: No symptoms reported Musculoskeletal: No symptoms reported Skin: No symptoms reported Hematologic/Lymphatic: No symptoms reported Neurological/Psychological: No symptoms reported Physical Exam - Vital signs Vitals: Pulse Resp BP 71 14 117/86 H 11/21/18 10:17 11/21/18 10:17 11/21/18 10:17 Interpretation: Normal - General General appearance: Appears well, Alert - HEENT Head: Normocephalic, Atraumatic Eyes: Normal Pupils: PERRL Ears: Normal External canal: Cerumen impaction - Left Sinus: Normal Nasal: Normal Mouth/Lips: Normal Pharynx: Normal Neck: Normal - Respiratory Respiratory status: No respiratory distress Chest status: Nontender Breath sounds: Normal Chest palpation: Normal - Cardiovascular Rhythm: Regular Heart sounds: Normal auscultation Murmur: No - Abdominal Inspection: Normal Distension: No distension Bowel sounds: Normal Tenderness: Nontender Organomegaly: No organomegaly - Back Back: Normal, Nontender - Extremities General upper extremity: Normal inspection, Nontender, Normal color, Normal ROM, Normal temperature General lower extremity: Normal inspection, Nontender, Normal color, Normal ROM, Normal temperature, Normal weight bearing. No: Rahat's sign - Neurological Neuro grossly intact: Yes Cognition: Normal Orientation: AAOx4 John Coma Scale Eye Opening: Spontaneous [place] Coma Scale Verbal: Oriented John Coma Scale Motor: Obeys Commands [place] Coma Scale Total: 15 Speech: Normal Motor strength normal: LUE, RUE, LLE, RLE Sensory: Normal - Psychological Associated symptoms: Normal affect, Normal mood - Skin Skin Temperature: Warm Skin Moisture: Dry Skin Color: Normal Course - Re-evaluation Re-evalutation: 11/21/18 13:56 Left ear was treated with Colace let sit for 20 minutes and then irrigated with warm water and peroxide. Part of the wax was removed but not all of it. Patient was instructed on continuing to irrigate at home with the half peroxide half saline and was instructed if he did not get the wax out to follow-up with the ENT. Patient verbalized understanding and agreement with treatment plan. - Vital Signs Vital signs: Temp Pulse Resp BP Pulse Ox 97.8 F 62 16 116/76 98 11/21/18 12:38 11/21/18 12:38 11/21/18 12:38 11/21/18 12:38 11/21/18 12:38 Discharge - Discharge Clinical Impression: Impacted cerumen, left ear Condition: Stable Disposition: HOME, SELF-CARE Instructions: Family Physicians / Practices Additional Instructions: Cerumen Impaction The physician found a severe buildup of earwax in your ear canal, called a cerumen impaction. A large plug of wax can cause earache, decreased hearing, or itching. It can even lead to infection of the outer ear. An impaction of earwax can be removed by the physician using special instruments, or can be irrigated out using a stream of water (often a little of both is required). Some less severe impactions are removed using ear drops that dissolve wax. In the future, don't get soap in your ear canal. Soap doesn't remove wax -- it simply hardens it in place. Don't use cotton swabs. These just push the wax into large clumps, where it doesn't flow out normally. Dust and smoke also contribute to wax buildup. Earwax softening drops are available without prescription, and can be used periodically. Contact the doctor if you develop decreased hearing, earache, drainage from the ear, or severe headache. Acetaminophen Acetaminophen may be taken for pain relief or fever control. It's much safer than aspirin, offering a wider range of "safe" dosages. It is safe during . Some brand names are Tylenol, Panadol, Datril, Anacin 3, Tempra, and Liquiprin. Acetaminophen can be repeated every four hours. The following are maximum recommended dosages: WEIGHT Dose Drops Elixir Chewable(80mg) (LBS.) drprs=droppers tsp=teaspoon 6 40 mg .4 ml (1/2) 6-11 80 mg .8 ml (full) 1/2 tsp 1 tab 12-16 120 mg 1 1/2 drprs 3/4 tsp 1 1/2 tabs 17-23 160 mg 2 drprs 1 tsp 2 tabs 24-30 240 mg 3 drprs 1 1/2 tsp 3 tabs 30-35 320 mg 2 tsp 4 tabs 36-41 360 mg 2 1/4 tsp 4 1/2 tabs 42-47 400 mg 2 1/2 tsp 5 tabs 48-53 480 mg 3 tsp 6 tabs 54-59 520 mg 3 1/4 tsp 6 1/2 tabs 60-64 560 mg 3 1/2 tsp 7 tabs 65-70 600 mg 3 3/4 tsp 7 1/2 tabs 71-76 640 mg 4 tsp 8 tabs 77-82 720 mg 4 1/2 tsp 9 tabs 83-88 800 mg 5 tsp 10 tabs >89 pounds or adults 650 mg to 900 mg Acetaminophen can be repeated every four hours. Maximum daily dose not to exceed 4000 mg. These maximum recommended dosages are slightly higher than the dosages written on the product container, but these dosages are very safe and well below the toxic dosage for acetaminophen. FOLLOW-UP CARE: If you have been referred to a physician for follow-up care, call the physicians office for an appointment as you were instructed or within the next two days. If you experience worsening or a significant change in your symptoms, notify the physician immediately or return to the Emergency Department at any time for re-evaluation. Forms: Smoking Cessation Education, Return to Work Referrals: CM LUDWIG DO [ASSOCIATE] - Follow up as needed
[2018-11-21 12:40] VITALS: BP 116/76
== END 2018-11-21 12:40 | disposition home or self-care (01) ==
LOC: ER 10:13
DX: H61.22 Impacted cerumen, left ear (principal); H92.02 Otalgia, left ear; F17.210 Nicotine dependence, cigarettes, uncomplicated
CPT/HCPCS: 99282; 99406